=== PATIENT | female | born 1955 | race Caucasian/White ===

== ENCOUNTER 2018-03-06 09:35 | Outpatient (CLI) | payer OTHER | END 2018-03-06 09:36 | disposition home or self-care (01) | LOC: BICMAMMO 09:35 | PROVIDERS: ATTEND Family Medicine | DX: N63.20 Unspecified lump in the left breast, unspecified quadrant (principal); N64.4 Mastodynia; L90.5 Scar conditions and fibrosis of skin; Z85.3 Personal history of malignant neoplasm of breast; Z80.3 Family history of malignant neoplasm of breast | CPT/HCPCS: 77066; G0279 ==

== ENCOUNTER 2018-07-17 10:10 | Outpatient (CLI) | payer OTHER ==
--- NOTE | 2018-07-17 13:26 | RAD ---
RIGHT KNEE FOUR VIEWS: HISTORY: Right knee pain. FINDINGS: There are degenerative changes in the right knee, most prominent in the medial tibiofemoral compartme nt. No acute fracture, dislocation, or bony destruction is seen. IMPRESSION: Right knee osteoarthritis. POS: DOMINIQUE
--- NOTE | 2018-07-17 13:26 | RAD ---
LEFT KNEE FOUR VIEWS: HISTORY: Left knee pain. FINDINGS: Degenerative changes are present, most prominent in the medial tibiofemoral compartment. No fracture , dislocation, or bony destruction is seen. IMPRESSION: Left knee osteoarthritis. POS: DOMINIQUE
== END 2018-07-17 10:11 | disposition home or self-care (01) ==
LOC: BICRAD 10:10
PROVIDERS: ATTEND Family Medicine
DX: M17.0 Bilateral primary osteoarthritis of knee (principal); M25.561 Pain in right knee; M25.562 Pain in left knee; R53.1 Weakness

== ENCOUNTER 2019-04-30 11:24 | Outpatient (CLI) | payer OTHER ==
--- NOTE | 2019-05-04 06:46 | MMO ---
Bilateral MAMMO Bilat Screen [facility]. CLINICAL HISTORY: Patient is 63 years old and is seen for screening. The patient has the following family history of breast cancer: mother, at age 58, malignant (generic) and maternal aunt, malignant (generic). The patient has a history of Lumpectomy procedure revealed intraductal carcinoma, low grade in the right breast in March,; Stereotactic Core Biopsy procedure revealed intraductal carcinoma, low grade in the right breast in February, and malignant (generic) in the right breast in 2011. The patient has a history of right Lumpectomy in February, - malignant. VIEWS: The views performed were: bilateral craniocaudal with tomosynthesis and bilateral mediolateral oblique with tomosynthesis. FILMS COMPARED: The present examination has been compared to prior imaging studies performed at [facility] on 02/24/2015, 02/26/2016, 02/27/2017 and 03/06/2018. MAMMOGRAM FINDINGS: The breasts are almost entirely fat. Finding 1: There is a stable post-surgical scar seen in the right breast. Finding 2: There are benign appearing calcifications seen in both breasts. There are no suspicious masses, suspicious calcifications, or new areas of architectural distortion. IMPRESSION: THERE IS NO MAMMOGRAPHIC EVIDENCE OF MALIGNANCY. A ROUTINE FOLLOW-UP MAMMOGRAM IN 1 YEAR IS RECOMMENDED. THE RESULTS OF THIS EXAM WERE SENT TO THE PATIENT. ACR BI-RADS Category 2 - Benign finding MAMMOGRAPHY NOTE: 1. A negative mammogram report should not delay a biopsy if a dominant of clinically suspicious mass is present. 2. Approximately 10% to 15% of breast cancers are not detected by mammography. 3. Adenosis and dense breasts may obscure an underlying neoplasm. Reported by: ANY BONE MD Electonically Signed: [id number]
== END 2019-04-30 11:25 | disposition home or self-care (01) ==
LOC: BICMAMMO 11:24
PROVIDERS: ATTEND Family Medicine
DX: Z12.31 Encounter for screening mammogram for malignant neoplasm of breast (principal); Z80.3 Family history of malignant neoplasm of breast; Z98.890 Other specified postprocedural states
CPT/HCPCS: 77063; 77067

== ENCOUNTER 2019-08-06 06:52 | Day surgery (SDC) | payer OTHER ==
[2019-07-22 08:21] VITALS: BMI 42.0
[2019-08-06] MEDS ORDERED: PROPOFOL 200 MG/20 ML VIAL ONE (10:22)
[2019-08-06] MEDS ORDERED: Lidocaine 1% PF 5 ML VIAL ONE (10:22)
--- NOTE | 2019-08-06 12:26 | OP ---
DATE OF PROCEDURE: 08/06/2019 PRODUCT MANAGEMENT SPECIALIST SURGEON: None. PROCEDURE: Screening colonoscopy. INDICATION: A 63-year-old woman here for average risk screening colonoscopy. Her last colonoscopy was greater than 10 years ago. MEDICATIONS: See Anesthesia record. FINDINGS: After discussion of the risks, benefits, and alternatives of the procedure, informed consent was obtained and witnessed. Pre-endoscopic cardiopulmonary examination was satisfactory. Time-out was performed before sedation was achieved. Sedation was achieved with Anesthesia assistance in the endoscopy unit. Digital rectal exam was performed, which was unremarkable. A Pentax adult colonoscope was inserted into the anus and passed forward to the cecum in the usual fashion. The cecal base was identified by the appendiceal orifice as well as the ileocecal valve. The terminal ileum was not intubated. The colonoscope was slowly withdrawn in a gradual and circumferential manner with careful examination of the entire colonic mucosa. The quality of the prep was good. The colonic mucosa appeared normal throughout. There were no polyps or mass lesions visualized. In the sigmoid colon, there is scattered diverticulosis. Retroflexion in the rectum was unremarkable. The colonoscope was completely withdrawn and the patient allowed to recover. The patient tolerated the procedure well. There were no immediate postprocedure complications. IMPRESSION: 1. Sigmoid diverticulosis. 2. Otherwise normal colonoscopy to the cecum. RECOMMENDATION: Repeat colonoscopy for screening in 10 years. Job ID: [id number]
== END 2019-08-06 10:55 | disposition home or self-care (01) ==
LOC: SDC 06:52
PROVIDERS: ATTEND Internal Medicine
PROC: 0DJD8ZZ Inspection of Lower Intestinal Tract, Via Natural or Artificial Opening Endoscopic (ICD-10-PCS; principal; 2019-08-06)
DX: Z12.11 Encounter for screening for malignant neoplasm of colon (principal); K57.30 Diverticulosis of large intestine without perforation or abscess without bleeding; F32.9 Major depressive disorder, single episode, unspecified; E78.5 Hyperlipidemia, unspecified; I10 Essential (primary) hypertension; G43.909 Migraine, unspecified, not intractable, without status migrainosus; M19.90 Unspecified osteoarthritis, unspecified site; Z79.899 Other long term (current) drug therapy; Z98.84 Bariatric surgery status
CPT/HCPCS: J2001; J2704

== ENCOUNTER 2019-11-11 18:37 | Inpatient (IN) | payer OTHER ==
[2019-11-11 19:15] LABS: #Basophils 0.1 thou/uL (0.0-0.2); #Lymphocytes 0.9 thou/uL (1.20-3.40); #Monocytes 0.6 thou/uL (0.11-0.59); #Neutrophils 10.9 thou/uL (1.40-6.50); %Basophils 0.8 % (0.0-1.0); %Eosinophils 0.1 % (0.0-10.0); %Monocytes 4.6 % (0.0-10.0); %Neutrophils 87.6 % (42.0-75.0); Hemoglobin 13.8 g/dL (12.0-16.0); Mean Corpuscular HGB CONC 32.4 g/dL (32.0-36.0); Mean Corpuscular Hemoglobin 29.5 pg (27.0-31.0); Mean Corpuscular Volume 90.8 fL (78.0-98.0); Mean Platelet Volume 7.7 fL (7.4-10.4); Platelet Count 256 thou/uL (130-400); RBC Distribution Width 12.8 % (11.5-14.5); Red Blood Cell (RBC) Count 4.69 mill/uL (4.20-5.40); White Blood Cell (WBC) Count 12.5 thou/uL (4.8-10.8)
[2019-11-11] MEDS ORDERED: Ondansetron PF 4 MG/2 ML Vial ONE (19:17)
[2019-11-11] MEDS ORDERED: Morphine 4 MG/ML VIAL ONE (19:17)
[2019-11-11 19:38] LABS: ALT (SGPT) 34 U/L (8-55); AST (SGOT) 59 U/L (5-34); Albumin 4.4 g/dL (3.4-4.8); Alkaline Phosphatase 107 U/L (40-110); Anion Gap 16 mmol/L (10-20); BUN (Urea Nitrogen) 14 mg/dL (9.8-20.1); Bilirubin, Total 0.5 mg/dL (0.2-1.2); Calc. Creatinine Clearance 0 mL/min (70-130); Calcium 9.3 mg/dL (7.8-10.44); Carbon Dioxide 23 mmol/L (23-31); Chloride 105 mmol/L (98-107); Estimated GFR-MDRD 48; Globulin 2.7 g/dL (2.4-3.5); Glucose 161 mg/dL (80-115); Potassium 3.8 mmol/L (3.5-5.1); Protein, Total 7.1 g/dL (6.0-8.3); Sodium 140 mmol/L (136-145)
[2019-11-11 20:05] LABS: Lipase 8587 U/L (8-78)
--- NOTE | 2019-11-11 20:56 | ULT ---
Ultrasound of [facility] upper quadrant: 11/11/2019 COMPARISON:None available HISTORY:Epigastric pain TECHNIQUE: Multiplanar grayscale sonographic imaging of [facility] upper quadrant FINDINGS:The pancreas is not well visualized secondary to bowel gas. There is no focal liver lesion or intrahepatic biliary dilatation. Numerous echogenic foci within the gallbladder lumen with shadowing noted, evidence of cholelithiasis . Gallbladder wall appears thickened, measuring in the 5 mm range. The automotive electrician reports a negative Collins's sign. The common bile duct measures 5 mm, within normal limits. The right kidney measures 11.4 cm in craniocaudal dimension and demonstrates no evidence for stone, h ydronephrosis, or mass. Questionable trace pericholecystic fluid. IMPRESSION:Gallbladder wall thickening and gallstones. Findings suggest acute cholecystitis in the pr oper clinical setting. Clinical correlation is essential. If further imaging assessment is clinically warranted, hepatobiliary scan advised.
[2019-11-11] MEDS ORDERED: Piperacillin/Tazobactam 4.5 GM VIAL ONE (21:06)
--- NOTE | 2019-11-11 21:08 | ULT ---
Left lower extremity venous Doppler ultrasound: 11/11/2019 COMPARISON: None HISTORY: Swelling, edema, assess for DVT TECHNIQUE: Multiplanar grayscale sonographic imaging of the venous structures of the left lower extre mity obtained with color flow and spectral analysis FINDINGS: Left common femoral vein, greater saphenous vein, profunda femoral vein, femoral vein, popl iteal vein, and posterior tibial vein are patent. Normal blood flow, augmentation, and compression within the deep venous system on the left. No evidence for deep venous thrombosis. IMPRESSION: No evidence for deep venous thrombosis of the left lower extremity.
[2019-11-11] MEDS ORDERED: Ondansetron PF 4 MG/2 ML Vial IVP PRN (22:23)
[2019-11-11] MEDS ORDERED: Ondansetron ODT 4 MG TAB SL PRN (22:23)
[2019-11-11] MEDS: Lactated Ringer's 1,000 ML IV SCH (22:30)
[2019-11-12] MEDS: Morphine 4 MG/ML VIAL SLOW IVP PRN ×2 (00:43→04:23)
[2019-11-12] MEDS: Lactated Ringer's 1,000 ML IV SCH ×2 (04:22→06:24)
[2019-11-12] MEDS ORDERED: Piperacillin/Tazobactam 4.5 GM in Sodium Chloride 0.9% 100 ML IVPB SCH (05:00)
[2019-11-12] MEDS ORDERED: Scopolamine 1.5 mg/72 hour Patch TOP SCH (05:45)
[2019-11-12] MEDS ORDERED: Ketorolac Tromethamine 30 MG/ML VIAL IVP SCH (05:45)
[2019-11-12] MEDS ORDERED: Acetaminophen 500 MG TAB PO SCH (08:00)
--- NOTE | 2019-11-12 08:17 | HP ---
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 She underwent gallbladder ultrasound revealing normal gallbladder, normal common bile duct caliber, multiple gallstones, negative sonographic Collins sign with a white count of 12, hemoglobin 13, and normal liver function tests (slightly elevated AST of 59) and lipase of 85 to 87. By this morning, her abdominal pain is much improved. She feels better. She has been admitted overnight from the emergency room and given IV fluids, wlr-yot-f-half maintenance. The patient has been diagnosed with biliary pancreatitis, chronic cholecystitis, and cholelithiasis. Plan is for laparoscopic video cholecystectomy and cholangiograms. ALLERGIES: NONE. TOBACCO, NONE. ALCOHOL, NONE. MEDICATIONS: 1. Methylphenidate ER. 2. Lisinopril 10 mg a day. 3. Pristiq 50 mg a day. [facility], [facility], #[id number]. PAST SURGICAL HISTORY: At the [facility], Dr. Sena performed a left total knee replacement in August 2019. In 2015, Dr. Sullivan performed a laparoscopic sleeve gastrectomy. In approximately 2009 (patient cannot remember the date), the patient had a right breast cancer, upper outer, partial mastectomy, sentinel node biopsy for breast cancer, treated with radiation, followed by Dr. Walters. She is up to date on her mammograms. In 2018, she had a colonoscopy with Dr. Vasquez that was normal. As far as the patient's laparoscopic sleeve gastrectomy, her weight prior to surgery was 295 pounds. She got down to a low of 225 pounds, now weighs 250 pounds. REVIEW OF SYSTEMS: Ten-point noncontributory. Cardiac, pulmonary, renal, gastrointestinal noncontributory except as noted above. PHYSICAL EXAMINATION: VITAL SIGNS: Height 5 feet 1 inch, 113 kg, 97.6, 82, 18, 142/82. HEAD, EARS, EYES, NOSE AND THROAT: Unremarkable. Sclerae nonicteric SKIN: Nonjaundiced. LUNGS: Clear to auscultation. CARDIAC: Regular rhythm, no murmur or gallop. ABDOMEN: Soft, mild tenderness, much improved relative to last night. EXTREMITIES: Unremarkable. Well-healed scar, left total knee replacement. No ankle edema. NEUROLOGIC: Intact. BREASTS: Without palpable masses. Axilla without masses. LABORATORY DATA: As noted above. ASSESSMENT: Biliary pancreatitis, cholelithiasis. Recommend laparoscopic video cholecystectomy. Risk of infection, bleeding, visceral and biliary injury, possibilities of ERCP, risk of bile duct injury discussed, questions answered. PLAN: Laparoscopic video cholecystectomy and cholangiograms today Job ID: [id number]
[2019-11-12] MEDS ORDERED: Acetaminophen 500 MG TAB ONE ×2 (09:12→09:13)
[2019-11-12] MEDS ORDERED: Midazolam HCl 2 mg/2 ml Vial ONE (09:22)
[2019-11-12] MEDS ORDERED: Fentanyl 100 MCG/2 ML VIAL ONE ×3 (09:22→11:19)
[2019-11-12] MEDS ORDERED: Iothalamate Meglumine 60% 50 ML VIAL FS ONE (09:30)
[2019-11-12] MEDS ORDERED: Bupivacaine PF 0.5% 30 ML VIAL ONE (09:30)
[2019-11-12] MEDS ORDERED: Lidocaine 1% w/Epinephrine 1:100K 20 ML VIAL ONE (09:30)
--- NOTE | 2019-11-12 11:01 | RAD ---
INTRAPROCEDURE FLUOROSCOPY INTRAOPERATIVE CHOLANGIOGRAM: EXPOSURE: 2.24 mGy, 8 seconds. FINDINGS: Single intraoperative fluoroscopic image demonstrates contrast opacification of the common bile duct, central and peripheral intrahepatic biliary system as well as the pancreatic duct. No filling defects. Contrast opacifies the duodenum. IMPRESSION: Intraoperative fluoroscopy as above. Transcribed Date/Time: 11/12/2019 11:47 AM
[2019-11-12] MEDS ORDERED: Acetaminophen 500 MG TAB PO PRN (11:20)
[2019-11-12] MEDS ORDERED: traMADol HCl 50 MG TAB PO PRN ×2 (11:20)
[2019-11-12] MEDS ORDERED: Ibuprofen 600 MG TAB PO PRN (11:20)
[2019-11-12] MEDS ORDERED: Lactated Ringer's 1,000 ML IV SCH (11:30)
[2019-11-12] MEDS ORDERED: Ondansetron PF 4 MG/2 ML Vial ONE (11:32)
[2019-11-12] MEDS ORDERED: PROPOFOL 200 MG/20 ML VIAL ONE (11:32)
[2019-11-12] MEDS ORDERED: Rocuronium Bromide 10 MG/ML (10ML VIAL) ONE (11:32)
[2019-11-12] MEDS ORDERED: Glycopyrrolate 0.2 MG/ML 5 ML SYRINGE ONE (11:32)
[2019-11-12] MEDS ORDERED: Morphine 4 MG/ML VIAL ONE (11:37)
[2019-11-12] MEDS ORDERED: Promethazine HCl 25 MG/ML VIAL ONE (11:37)
--- NOTE | 2019-11-12 11:43 | DIS ---
DATE OF ADMISSION: 11/11/2019 DATE OF DISCHARGE: 11/12/2019 DISCHARGE DIAGNOSES: 1. Biliary pancreatitis, cholelithiasis. 2. Morbid obesity, status post sleeve gastrectomy. 3. History of breast cancer. 4. Hypertension. 5. 5 feet 1 inch. PROCEDURES: Ultrasound of the gallbladder, gallstones, normal bile duct caliber, normal liver function tests, elevated lipase. HISTORY: A 63-year-old female with biliary symptoms, had acute onset of pain, evaluated in the emergency room, found to have a biliary pancreatitis. Ultrasound reveals gallstones, normal bile duct caliber. Hospitalized overnight, intravenous fluids, resuscitated, and her pain improved and she underwent laparoscopic video cholecystectomy postoperatively. Discharged home with diet and activity as tolerated. Resume her bariatric diet. Follow up in my office in 2 to 3 weeks 50 mg as needed, Tylenol, ibuprofen [id number] for pain. Should suffice, resume lisinopril and home medications. Job ID: [id number]
--- NOTE | 2019-11-12 12:42 | OP ---
DATE OF PROCEDURE: 11/12/2019 PREOPERATIVE DIAGNOSES: Chronic cholecystitis, cholelithiasis, biliary pancreatitis, bariatric status, history of sleeve gastrectomy, morbid obesity. POSTOPERATIVE DIAGNOSES: Chronic cholecystitis, cholelithiasis, biliary pancreatitis, bariatric status, history of sleeve gastrectomy, morbid obesity. PROCEDURE PERFORMED: Laparoscopic video cholecystectomy, negative intraoperative cholangiogram using fluoroscopy. ANESTHESIA: General, local 0.5% Marcaine 30 mL mixed with 1% Xylocaine with epinephrine 20 mL. DESCRIPTION OF PROCEDURE: The patient was taken to the operating room, where under general anesthesia, abdomen was prepared with ChloraPrep and draped in routine fashion. A supraumbilical incision was made. Pneumoperitoneum to 15 mmHg was obtained with Veress needle, replacing with a 5 port and laparoscope inserted. Right subxiphoid incision was made and 11 port placed, right subcostal incision was made at midclavicular anterior axillary line and 5 port was placed. Liver appeared to be normal. Gallbladder was distended with multiple stones. There was slight edema. Fundus of the gallbladder was grasped at the cephalad. Infundibulum was grasped and retracted laterally. Cystic artery and duct dissected free. Critical view obtained. Cystic artery was doubly clipped proximally. Cystic duct singly clipped on the gallbladder side and an opening made in the cystic duct. Cholangiocatheter inserted using fluoroscopy, cholangiogram was obtained using contrast, revealing free flow of contrast to the duodenum without filling defects in the common hepatic, common bile, or left and right hepatic ducts. Cholangiocatheter removed. Cystic duct stump doubly clipped. Cystic artery and duct divided and gallbladder dissected free from liver bed, obtaining good hemostasis prior to division of the final peritoneal attachments. Good hemostasis obtained in the liver bed. Dayan was used. Irrigant and pneumoperitoneum were evacuated. All instruments were removed, and all skin incisions were approximated with interrupted subdermal 4-0 Monocryl and [place] glue applied. Job ID: [id number]
[2019-11-12 16:35] VITALS: BP 143/80; TEMP 98
[2019-11-13] MEDS ORDERED: METHYLPHENIDATE 54 MG PO SCH (09:00)
[2019-11-13] MEDS ORDERED: Multivitamin W/ Minerals 1 TAB PO SCH (09:00)
[2019-11-13] MEDS ORDERED: Lisinopril 10 MG TAB PO SCH (09:00)
[2019-11-13] MEDS ORDERED: Venlafaxine HCl XR 75 MG CAP PO SCH (09:00)
== END 2019-11-12 18:32 | disposition home or self-care (01) | DRG 417 ==
LOC: ERS 18:37 → SJJU 21:25
PROVIDERS: ADMIT Specialist; ATTEND Specialist
PROC: 0FT44ZZ Resection of Gallbladder, Percutaneous Endoscopic Approach (ICD-10-PCS; principal; 2019-11-12)
PROC: BF111ZZ Fluoroscopy of Biliary and Pancreatic Ducts using Low Osmolar Contrast (ICD-10-PCS; 2019-11-12)
DX: K80.10 Calculus of gallbladder with chronic cholecystitis without obstruction (principal); K85.10 Biliary acute pancreatitis without necrosis or infection; E66.01 Morbid (severe) obesity due to excess calories; I10 Essential (primary) hypertension; Z96.652 Presence of left artificial knee joint; F90.9 Attention-deficit hyperactivity disorder, unspecified type; F32.9 Major depressive disorder, single episode, unspecified; Z85.3 Personal history of malignant neoplasm of breast
CPT/HCPCS: 36415; 47532; 76705; 80053; 83690; 84484; 85025; 88304; 93005; 96361; 96365; 96375; J1610; J1885; J2250; J2270; J2405; J2543; J2550; J2704; J3010; J3490; S0020

== ENCOUNTER 2020-06-09 13:02 | Outpatient (CLI) | payer OTHER ==
--- NOTE | 2020-06-09 14:53 | MMO ---
Bilateral MAMMO Bilat Screen [facility]. CLINICAL HISTORY: Patient is 64 years old and is seen for screening. The patient has the following family history of breast cancer: mother, at age 58, malignant (generic) and maternal aunt, malignant (generic). The patient has a history of lumpectomy procedure revealed intraductal carcinoma, low grade in the right breast in March,; Stereotactic core biopsy procedure revealed intraductal carcinoma, low grade in the right breast in February, and malignant (generic) in the right breast in 2011. The patient has a history of right Lumpectomy in February, - malignant. VIEWS: The views performed were: bilateral craniocaudal with tomosynthesis; bilateral mediolateral oblique with tomosynthesis; and right exaggerated craniocaudal. FILMS COMPARED: The present examination has been compared to prior imaging studies performed at [facility] on 02/26/2016, 02/27/2017, 03/06/2018 and 04/30/2019. This study has been interpreted with the assistance of computer-aided detection. MAMMOGRAM FINDINGS: The breasts are almost entirely fat. There is a stable post-surgical scar seen in the right breast. Benign calcifications are noted bilaterally. There are no suspicious masses, suspicious calcifications, or new areas of architectural distortion. IMPRESSION: THERE IS NO MAMMOGRAPHIC EVIDENCE OF MALIGNANCY. A ROUTINE FOLLOW-UP MAMMOGRAM IN 1 YEAR IS RECOMMENDED. THE RESULTS OF THIS EXAM WERE SENT TO THE PATIENT. ACR BI-RADS Category 2 - Benign finding MAMMOGRAPHY NOTE: 1. A negative mammogram report should not delay a biopsy if a dominant of clinically suspicious mass is present. 2. Approximately 10% to 15% of breast cancers are not detected by mammography. 3. Adenosis and dense breasts may obscure an underlying neoplasm. Reported by: EDDIE GOMES MD Electonically Signed: [id number]
== END 2020-06-09 13:03 | disposition home or self-care (01) ==
LOC: BICMAMMO 13:02
PROVIDERS: ATTEND Internal Medicine
DX: Z12.31 Encounter for screening mammogram for malignant neoplasm of breast (principal); Z85.3 Personal history of malignant neoplasm of breast; Z80.3 Family history of malignant neoplasm of breast; Z98.890 Other specified postprocedural states
CPT/HCPCS: 77063; 77067

== ENCOUNTER 2021-06-21 13:33 | Outpatient (CLI) | payer MEDICARE | END 2021-06-21 13:34 | disposition home or self-care (01) | LOC: BICMAMMO 13:33 | PROVIDERS: ATTEND Internal Medicine | DX: Z12.31 Encounter for screening mammogram for malignant neoplasm of breast (principal); Z13.820 Encounter for screening for osteoporosis; Z78.0 Asymptomatic menopausal state; Z80.3 Family history of malignant neoplasm of breast; Z85.3 Personal history of malignant neoplasm of breast; Z98.890 Other specified postprocedural states | CPT/HCPCS: 77063; 77067; 77080 ==

== ENCOUNTER 2021-10-16 10:35 | Outpatient (CLI) | payer MEDICARE | END 2021-10-16 10:36 | disposition home or self-care (01) | LOC: BICRAD 10:35 | PROVIDERS: ATTEND Internal Medicine | DX: M47.26 Other spondylosis with radiculopathy, lumbar region (principal); M25.552 Pain in left hip; M16.12 Unilateral primary osteoarthritis, left hip | CPT/HCPCS: 72100 ==

== ENCOUNTER 2022-10-15 12:07 | Outpatient (CLI) | payer MEDICARE | END 2022-10-15 12:08 | disposition home or self-care (01) | LOC: ULT 12:07 | PROVIDERS: ATTEND Internal Medicine | DX: M79.89 Other specified soft tissue disorders (principal) | CPT/HCPCS: 76999 ==

== ENCOUNTER 2023-01-17 10:53 | Outpatient (CLI) | payer MEDICARE | END 2023-01-17 10:54 | disposition home or self-care (01) | LOC: BICMAMMO 10:53 | PROVIDERS: ATTEND Internal Medicine | DX: Z12.31 Encounter for screening mammogram for malignant neoplasm of breast (principal); Z80.3 Family history of malignant neoplasm of breast; Z85.3 Personal history of malignant neoplasm of breast; Z98.890 Other specified postprocedural states | CPT/HCPCS: 77063; 77067 ==

== ENCOUNTER 2025-06-13 12:29 | Outpatient (CLI) | payer MEDICARE | END 2025-06-13 12:30 | disposition home or self-care (01) | LOC: ULT 12:29 | PROVIDERS: ATTEND Internal Medicine | DX: R09.89 Other specified symptoms and signs involving the circulatory and respiratory systems (principal) | CPT/HCPCS: 93922 ==